=== PATIENT | female | born 1970 | race Hispanic/Latino ===

== ENCOUNTER 2017-10-01 09:01 | Emergency (ER) | payer SELFPAY ==
[~2017-10-01] VITALS: Ht 152.4 cm; Wt 67.0 kg
[2017-10-01] MEDS ORDERED: NAPROSYN500 MG PO (09:15)
[2017-10-01] MEDS ORDERED: TRAMADOL HYDROC50 MG PO (10:57)
[2017-10-01 11:08] VITALS: BP 155/75
[2017-10-02] MEDS ORDERED: ZOFRAN ODT4 MG PO (20:18)
[2017-10-02] MEDS ORDERED: FIORICET PO ×2 (20:18→20:57)
== END 2017-10-01 11:08 | disposition home or self-care (01) | DRG 103 ==
LOC: ED 09:01
DX: R51 Headache (principal)

== ENCOUNTER 2017-10-02 18:04 | Emergency (ER) | payer SELFPAY ==
[~2017-10-02] VITALS: Ht 157.5 cm; Wt 70.0 kg
[~2017-10-02 18:04] MED LIST: NAPROSYN500 MG PO; TRAMADOL HYDROC50 MG PO
[2017-10-02 19:25] LABS: URINE BILIRUBIN - DIPSTICK NEGATIVE (NEGATIVE); URINE BLOOD DIPSTICK LARGE (NEGATIVE); URINE GLUCOSE - DIPSTICK NEGATIVE (NEGATIVE); URINE KETONE >=80 mg/dL (NEGATIVE); URINE LEUK ESTERASE TRACE (NEGATIVE); URINE PROTEIN - DIPSTICK 100 mg/dL (NEG-TRACE); URINE SPECIFIC GRAVITY 1.025; URINE UROBILINOGEN - DIPSTICK 0.2 E.U./dL (0.2)
[2017-10-02 19:27] LABS: URINE CLARITY CLOUDY; URINE COLOR AMBER; URINE NITRITE - DIPSTICK POSITIVE (Negative)
[2017-10-02 19:30] LABS: HEMATOCRIT 40.4 % (37.0-47.0); IMMATURE GRANULOCYTES 0.5 % (0.0-1.0); MEAN CELL VOLUME 90.6 fL CALC (80.0-100.0); MEAN CORPUSCULAR HGB 31.4 pG CALC (26.0-32.0); MEAN CORPUSCULAR HGB CONC 34.7 g/L CALC (32.0-36.0); NEUT# 8.83 thou/uL (2.00-7.15); RED BLOOD COUNT 4.46 mill/uL (4.20-5.60); RED CELL DISTRI WIDTH 11.9 % (11.5-15.5)
[2017-10-02 19:33] LABS: INFLUENZA A NONE DETECTED (NONE DETECT); INFLUENZA B NONE DETECTED (NONE DETECT)
[2017-10-02 19:33] LABS: URINE BACTERIA FEW hpf; URINE RBC 25-50 RBC/hpf (0-5); URINE SQUAMOUS EPITHELIAL CELL MODERATE EPI/hpf (0-FEW)
[2017-10-02 19:34] LABS: ALBUMIN 4.8 g/dL (3.2-5.0); ALKALINE PHOSPHATASE 140 u/l (38-126); ANION GAP 18 (6-22 (CALC)); BILIRUBIN, TOTAL 0.5 mg/dL (0.0-1.4); BUN 15 mg/dL (7-17); BUN/CREATININE RATIO 26 (12-20 (CALC)); CALCIUM 9.6 mg/dL (8.4-10.2); CARBON DIOXIDE 23 mmol/l (22-30); CHLORIDE 104 mmol/l (95-108); CREATININE 0.6 mg/dL (0.5-1.0); GFR > 60 ML/MIN (>=60 (CALC)); GFR FOR AFR.AMER. > 60 ML/MIN (>=60 (CALC)); GLUCOSE 110 mg/dL (65-105); POTASSIUM 3.8 mmol/l (3.5-5.1); SGOT/AST 38 u/l (14-36); SGPT/ALT 81 u/l (9-52); SODIUM 141 mmol/l (137-146); TOTAL PROTEIN 8.1 g/dL (6.3-8.2)
[2017-10-02 20:03] LABS: AMYLASE 76 u/l (30-110); LIPASE 124 u/l (23-300)
[2017-10-02] MEDS ORDERED: FIORICET PO ×2 (20:18→20:57)
[2017-10-02] MEDS ORDERED: ZOFRAN ODT4 MG PO (20:18)
[2017-10-02 21:04] VITALS: BP 150/77
== END 2017-10-02 21:10 | disposition home or self-care (01) | DRG 103 ==
LOC: ED 18:04
PROVIDERS: Emergency Medicine
DX: G43.909 Migraine, unspecified, not intractable, without status migrainosus (principal); B34.9 Viral infection, unspecified; R50.9 Fever, unspecified; R11.10 Vomiting, unspecified